=== PATIENT | female | born 1990 | race Two or more races ===

== ENCOUNTER 2020-12-08 18:50 | Emergency (ER) | payer OTHER ==
[~2020-12-08] VITALS: Ht 160 cm; Wt 47.6 kg
[2020-12-09] MEDS ORDERED: KETO10TA2 PO (07:38)
== END 2020-12-09 08:15 | disposition home or self-care (01) ==
LOC: ER 18:50
DX: N20.0 Calculus of kidney (principal)

== ENCOUNTER 2020-12-09 10:54 | Emergency (ER) | payer OTHER ==
[~2020-12-09] VITALS: Ht 152.4 cm; Wt 45.8 kg
[~2020-12-09 10:54] MED LIST: KETO10TA2 PO
== END 2020-12-09 14:15 | disposition home or self-care (01) ==
LOC: ER 10:54
DX: N23 Unspecified renal colic (principal)